=== PATIENT | female | born 1990 | race Two or more races ===

== ENCOUNTER 2016-06-20 20:17 | Emergency (ER) | payer OTHER ==
[~2016-06-20] VITALS: Ht 157.5 cm; Wt 68.0 kg
[~2016-06-20 20:17] MED LIST: ACET50TA PO; IBUP80TA PO
[2016-06-20] MEDS ORDERED: AMOXICILLIN 500 MG CAP PO ONE (22:30)
[2016-06-20] MEDS ORDERED: KETOROLAC 30 MG/ML VIAL (J1885) IM ONE (22:30)
[2016-06-20] MEDS ORDERED: AMOX500C PO (23:13)
[2016-06-20 23:46] VITALS: BP 130/60
== END 2016-06-20 23:49 | disposition home or self-care (01) ==
LOC: M ED 21:39
DX: J02.9 Acute pharyngitis, unspecified (principal)
CPT/HCPCS: 87804; 96372; 99282; J1885

== ENCOUNTER → 2016-10-19 | Outpatient (REF) | payer OTHER ==
[~2016-10-19] MED LIST changes: +AMOX500C PO
== END ==
LOC: M SFHCLERA 15:38
PROVIDERS: ATTEND Nurse Practitioner Family
DX: R30.0 Dysuria (principal)